=== PATIENT | male | born 1995 | race Caucasian/White ===

== ENCOUNTER 2019-06-24 11:25 | Inpatient (IN) | payer MEDICAID ==
[~2019-06-24] VITALS: Ht 188 cm; Wt 80.9 kg
[2019-06-24] VITALS (14 sets, daily range): BP systolic 127–158; BP diastolic 68–85
[~2019-06-24 11:25] MED LIST: CYCL-1 PO; IBUP-1984 PO; META800T87 PO; TRAZ-91 PO; WEL75T PO
[2019-06-24 12:39] LABS: CLARITY,URINE CLEAR (Clear); COLOR,URINE YELLOW (Yellow); GLUCOSE, URINE NEGATIVE (Neg); KETONES,URINE TRACE mg/dl (Neg); LEUKOCYTE ESTERASE ,URINE NEGATIVE (Neg); NITRITES, URINE NEGATIVE (Neg); OCCULT BLOOD,URINE TRACE-LYSED (Neg); PH,URINE 6.5 (4.8-8.0); PROTEIN,URINE NEGATIVE (Neg)
[2019-06-24 12:40] LABS: UA COLLECTION TYPE CLN CATCH MIDSTREAM
[2019-06-24 12:44] LABS: BASOPHILS # (AUTO) 0.1 X10'3 (0-0.2); BASOPHILS % (AUTO) 0.4 % (0-1); EOSINOPHILS % (AUTO) 0.2 % (0-6); HEMATOCRIT 37.1 % (42.0-52.0); HEMOGLOBIN 12.6 g/dl (14.0-17.9); LYMPHOCYTES # (AUTO) 1.4 X10'3 (1.1-4.8); LYMPHOCYTES % (AUTO) 9.5 % (21-51); MEAN CORPUSCULAR HEMOGLOBIN 30.7 PG (27.0-31.0); MEAN CORPUSCULAR VOLUME 90.3 FL (78-98); MEAN PLATELET VOLUME 10.5 FL (7.4-10.4); MONOCYTES # (AUTO) 1.7 X10'3 (0-0.9); MONOCYTES % (AUTO) 11.5 % (2-12); NEUTROPHILS # (AUTO) 11.7 X10'3 (1.8-7.7); NEUTROPHILS % (AUTO) 78.4 % (42-75); PLATELET COUNT 255 X10'3 (140-440); RED BLOOD COUNT 4.12 X10'6 (4.70-6.10); RED CELL DISTRIBUTION WIDTH 13.2 % (11.5-14.5); WHITE BLOOD COUNT 14.9 X10'3 (4.5-11.0)
[2019-06-24 12:54] LABS: ALANINE AMINOTRANSFERASE 68 U/L (12-78); ALBUMIN 3.6 G/DL (3.4-5.0); ALBUMIN/GLOBULIN RATIO 0.8 (1.1-1.5); ALKALINE PHOSPHATASE 126 IU/L (46-116); ANION GAP 8 (8-16); ASPARTATE AMINO TRANSFERASE 34 U/L (10-37); BILIRUBIN,TOTAL 0.7 MG/DL (0.1-1.0); BLOOD UREA NITROGEN 8 MG/DL (7-18); BUN/CREATININE RATIO 8.2 (5.4-32.0); CALCIUM 9.8 MG/DL (8.5-10.1); CHLORIDE 96 MMOL/L (99-107); CREATININE 0.98 MG/DL (0.60-1.10); GLUCOSE 107 MG/DL (70-104); LIPASE 60 U/L (73-393); POTASSIUM 3.8 MMOL/L (3.5-5.1); SODIUM 136 MMOL/L (135-145); TOTAL CARBON DIOXIDE 31.7 MMOL/L (24-32); TOTAL PROTEIN 8.4 G/DL (6.4-8.2); eGFR > 90 ML/MIN
[2019-06-24 12:57] LABS: BACTERIA,URINE FEW /HPF (Neg); RBC,URINE 0-2 /HPF (0-2); WBC,URINE 0-4 /HPF (0-4)
[2019-06-24 12:58] LABS: SQUAMOUS EPITHELIAL CELL,UR NONE SEEN /LPF (FEW)
[2019-06-24] MEDS ORDERED: piperacillin/tazo 3.375gm/50ml 50 ML IV ONE (13:00)
[2019-06-24 13:02] LABS: LARGE PLATELETS FEW; PLATELET ESTIMATE NORMAL
[2019-06-24] MEDS ORDERED: mag hydrox/Alum hydrox/simeth 30ml oral suspension PO PRN (13:25)
[2019-06-24] MEDS ORDERED: ondansetron/PF 4mg/2ml inj IV PRN ×2 (13:25→18:10)
[2019-06-24] MEDS ORDERED: acetaminophen 325mg tablet PO PRN (13:25)
[2019-06-24] MEDS ORDERED: morphine 2 MG/ML inj. syringe IV PRN (13:25)
[2019-06-24] MEDS ORDERED: magnesium hydroxide 30ml (MOM) UD suspension PO PRN (13:25)
[2019-06-24] MEDS: normal saline 1000ml 1,000 ML IV SCH (13:29)
[2019-06-24] MEDS ORDERED: METH-603 PO (13:39)
--- NOTE | 2019-06-24 17:15 | NUR ---
patient to OR. Pharmacy stated 1600 dose of zosyn can be made and sent to OR. director pharmacovigilance aware.
[2019-06-24] MEDS: piperacillin/tazo 4.5gm/100ml 100 ML IV SCH ×2 (17:22→23:20)
[2019-06-24] MEDS ORDERED: clindamycin phosphate 150mg/ml inj. ONE (17:46)
[2019-06-24] MEDS ORDERED: gentamicin 40 MG/1 ML inj ONE (17:46)
[2019-06-24] MEDS ORDERED: ringers solution, lacted 1,000 ML IV SCH (18:06)
[2019-06-24] MEDS ORDERED: sevoflurane 250ml liquid IH ONE (18:09)
[2019-06-24] MEDS ORDERED: morphine 4 MG/ML inj SYRINge IV PRN ×2 (18:10)
[2019-06-24] MEDS ORDERED: meperidine/PF 25mg/ml syringe IV PRN ×2 (18:10)
[2019-06-24] MEDS ORDERED: proCHLORperazine 10 MG/2 ml inj IV PRN (18:10)
[2019-06-24] MEDS ORDERED: midazolam 2 mg/2 ml injection ONE (18:15)
[2019-06-24] MEDS ORDERED: fentaNYL /PF 50mcg/ml 5ml ampule ONE (18:17)
[2019-06-24] MEDS ORDERED: rocuronium 10mg/ml inj IV ONE (18:19)
[2019-06-24] MEDS ORDERED: propofol inj 20 ML IV ONE (18:19)
--- NOTE | 2019-06-24 18:20 | NUR ---
Received report from JENIFER Leija. Patient still in OR. Awaiting arrival to the floor.
--- NOTE | 2019-06-24 18:29 | NUR ---
Problems reprioritized. Patient report given, questions answered & plan of care reviewed with JENIFER Watkins.
[2019-06-24] MEDS ORDERED: ceFOXitin 2 GM ADDVANTGE BAG 50 ML IV ONE (18:32)
[2019-06-24] MEDS ORDERED: acetaminophen 1,000mg/100ml IV 100 ML IV ONE ×2 (19:20→19:32)
[2019-06-24] MEDS ORDERED: fentaNYL/PF 50MCG/1 ML 2ML syringe ONE (19:24)
[2019-06-24] MEDS ORDERED: BUPIVAcaine/PF 2.5mg/ml (0.25%) 10ml vial ONE (19:27)
[2019-06-24] MEDS ORDERED: BUPIVACAINE liposomal/PF 13.3 MG/ML vial IM ONE (19:27)
[2019-06-24] MEDS ORDERED: BUPIVAcaine/PF 2.5 mg/ml (0.25%) 30ml vial ONE (19:27)
[2019-06-24] MEDS ORDERED: HYDROcodone/acetaminophen 10/325mg tab PO PRN (19:45)
[2019-06-24] MEDS ORDERED: sugammadex 200mg/2ml injection IV ONE (19:46)
--- NOTE | 2019-06-24 19:57 | NUR ---
ARRIVED IN PACU VIA BED WITH DR BRITT IN ATTENDANCE. PT VS STABLE. NO PAIN, BUT DEMEROL GIVEN FOR SHIVERING
--- NOTE | 2019-06-24 20:15 | NUR ---
FENTANYL GIVEN BY ANESTHESIA
--- NOTE | 2019-06-24 20:27 | NUR ---
C/O INCREASING PAIN, MEDICATED. DRAIN EMPTIED FOR 20ML THIN PINK DRAINAGE
[2019-06-24] MEDS: meperidine/PF 25mg/ml syringe IV PRN ×2 (20:29→20:39)
--- NOTE | 2019-06-24 20:47 | NUR ---
PT TO 3 SURG. FAMILY AT BEDSIDE. REPORT TO RN, QUESTIONS ANSWERED
[2019-06-24] MEDS: morphine 2 MG/ML inj. syringe IV PRN (23:19)
[2019-06-25] VITALS: BP 134/79
[2019-06-25] MEDS: normal saline 1000ml 1,000 ML IV SCH ×4 (00:55→23:14)
[2019-06-25 01:00] VITALS: BP 128/70
[2019-06-25] MEDS: morphine 2 MG/ML inj. syringe IV PRN (03:21)
[2019-06-25 03:51] LABS: BASOPHILS % (AUTO) 0.1 % (0-1); EOSINOPHILS % (AUTO) 0 % (0-6); HEMATOCRIT 33.1 % (42.0-52.0); HEMOGLOBIN 11.2 g/dl (14.0-17.9); LYMPHOCYTES # (AUTO) 0.7 X10'3 (1.1-4.8); LYMPHOCYTES % (AUTO) 4.7 % (21-51); MEAN CORPUSCULAR HEMOGLOBIN 30.8 PG (27.0-31.0); MEAN CORPUSCULAR HGB CONC 33.9 g/dL (33.0-36.5); MEAN PLATELET VOLUME 10.5 FL (7.4-10.4); MONOCYTES % (AUTO) 6.7 % (2-12); NEUTROPHILS % (AUTO) 88.5 % (42-75); PLATELET COUNT 226 X10'3 (140-440); RED BLOOD COUNT 3.64 X10'6 (4.70-6.10); RED CELL DISTRIBUTION WIDTH 13.3 % (11.5-14.5); WHITE BLOOD COUNT 14.7 X10'3 (4.5-11.0)
[2019-06-25 03:53] LABS: ANION GAP 4 (8-16); BLOOD UREA NITROGEN 7 MG/DL (7-18); BUN/CREATININE RATIO 8.3 (5.4-32.0); CALCIUM 9.3 MG/DL (8.5-10.1); CHLORIDE 101 MMOL/L (99-107); CREATININE 0.84 MG/DL (0.60-1.10); GLUCOSE 130 MG/DL (70-104); POTASSIUM 3.6 MMOL/L (3.5-5.1); SODIUM 138 MMOL/L (135-145); TOTAL CARBON DIOXIDE 32.6 MMOL/L (24-32); eGFR > 90 ML/MIN
[2019-06-25 04:00] VITALS: BP 129/65
--- NOTE | 2019-06-25 06:19 | NUR ---
Problems reprioritized. Patient report given, questions answered & plan of care reviewed with JENIFER Leija.
[2019-06-25 07:15] VITALS: BP 130/84
--- NOTE | 2019-06-25 07:40 | NUR ---
PAGER ID: [phone] MESSAGE: Ana Moss LawrenceA : please address med rec. 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 thank you!
[2019-06-25] MEDS: piperacillin/tazo 4.5gm/100ml 100 ML IV SCH ×3 (08:19→23:13)
[2019-06-25] MEDS ORDERED: methadone 10mg tablet PO ONE (09:00)
[2019-06-25 11:44] VITALS: BP 133/87
[2019-06-25] MEDS ORDERED: LORazepam 2 mg/ml vial IV PRN (17:50)
--- NOTE | 2019-06-25 18:26 | NUR ---
Problems reprioritized. Patient report given, questions answered & plan of care reviewed with JENIFER Narvaez.
[2019-06-25] MEDS: ketorolac trometh. 30mg/ml inj. IV PRN (19:28)
--- NOTE | 2019-06-25 19:40 | NUR ---
Patient in room [facility]. I have received report from JENIFER Leija and had the opportunity to ask questions and assume patient care. Addendum: 06/25/19 at 194 by Nuvia Yung RN Amended: Links added.
[2019-06-25 20:00] VITALS: BP 145/78
[2019-06-26 00:06] VITALS: BP 134/75
--- NOTE | 2019-06-26 06:26 | NUR ---
Problems reprioritized. Patient report given, questions answered & plan of care reviewed with JENIFER Becerra. Addendum: 06/26/19 at 0626 by Nuvia Yung RN Amended: Links added.
--- NOTE | 2019-06-26 06:43 | NUR ---
Patient in room [facility]. I have received report from JENIFER Narvaez and had the opportunity to ask questions and assume patient care.
[2019-06-26 07:00] VITALS: BP 124/71
[2019-06-26 08:37] LABS: ALBUMIN 2.6 G/DL (3.4-5.0); ANION GAP 8 (8-16); BLOOD UREA NITROGEN 7 MG/DL (7-18); BUN/CREATININE RATIO 9.6 (5.4-32.0); CALCIUM 9.2 MG/DL (8.5-10.1); CHLORIDE 106 MMOL/L (99-107); CREATININE 0.73 MG/DL (0.60-1.10); GLUCOSE 88 MG/DL (70-104); POTASSIUM 3.2 MMOL/L (3.5-5.1); SODIUM 143 MMOL/L (135-145); TOTAL CARBON DIOXIDE 28.8 MMOL/L (24-32); eGFR > 90 ML/MIN
[2019-06-26 08:46] LABS: BASOPHILS % (AUTO) 0.1 % (0-1); EOSINOPHILS # (AUTO) 0.1 X10'3 (0-0.9); EOSINOPHILS % (AUTO) 0.5 % (0-6); HEMATOCRIT 31.7 % (42.0-52.0); HEMOGLOBIN 10.6 g/dl (14.0-17.9); LYMPHOCYTES # (AUTO) 1.4 X10'3 (1.1-4.8); LYMPHOCYTES % (AUTO) 10.4 % (21-51); MEAN CORPUSCULAR HEMOGLOBIN 30.2 PG (27.0-31.0); MEAN CORPUSCULAR HGB CONC 33.4 g/dL (33.0-36.5); MEAN CORPUSCULAR VOLUME 90.6 FL (78-98); MEAN PLATELET VOLUME 11.1 FL (7.4-10.4); MONOCYTES # (AUTO) 1.1 X10'3 (0-0.9); MONOCYTES % (AUTO) 8.1 % (2-12); NEUTROPHILS % (AUTO) 80.9 % (42-75); PLATELET COUNT 262 X10'3 (140-440); RED CELL DISTRIBUTION WIDTH 13.5 % (11.5-14.5); WHITE BLOOD COUNT 13.6 X10'3 (4.5-11.0)
[2019-06-26] MEDS: piperacillin/tazo 4.5gm/100ml 100 ML IV SCH ×2 (08:51→17:02)
[2019-06-26] MEDS: normal saline 1000ml 1,000 ML IV SCH ×2 (08:51→17:03)
[2019-06-26] MEDS: methadone 10mg tablet PO SCH (08:52)
[2019-06-26 10:17] LABS: LARGE PLATELETS FEW; PLATELET ESTIMATE NORMAL
[2019-06-26 11:00] VITALS: BP 133/87
[2019-06-26] MEDS ORDERED: potassium Cl 20 mEq SR tablet PO PRN ×2 (16:25)
[2019-06-26] MEDS: K and/or MAG REPLACEMENT MC SCH ×2 (16:25→20:00)
[2019-06-26] MEDS ORDERED: potassium CL 10mEq/100ml bag 100 ML IV PRN (16:25)
[2019-06-26 17:19] LABS: MAGNESIUM 1.8 MG/DL (1.5-2.4); POTASSIUM 3.2 MMOL/L (3.5-5.1)
--- NOTE | 2019-06-26 19:01 | NUR ---
Problems reprioritized. Patient report given, questions answered & plan of care reviewed with JENIFER STEWARD.
[2019-06-26 20:00] VITALS: BP 126/81
[2019-06-26] MEDS: ketorolac trometh. 30mg/ml inj. IV PRN (20:57)
--- NOTE | 2019-06-26 23:01 | NUR ---
Patient in room [facility]. I have received report from JENIFER Becerra and had the opportunity to ask questions and assume patient care. Addendum: 06/26/19 at 2302 by Nuvia Yung RN Amended: Links added.
--- NOTE | 2019-06-26 23:04 | NUR ---
dressing changed but pt refused to have packing removed. premedicated pt. for pain prior to dressing change. Addendum: 06/26/19 at 2305 by Nuvia Yung RN Amended: Links added.
[2019-06-27] MEDS: piperacillin/tazo 4.5gm/100ml 100 ML IV SCH ×4 (00:02→23:46)
[2019-06-27] MEDS: normal saline 1000ml 1,000 ML IV SCH ×3 (00:24→19:38)
[2019-06-27 00:47] VITALS: BP 130/82
[2019-06-27 05:57] LABS: BASOPHILS % (AUTO) 0.2 % (0-1); EOSINOPHILS # (AUTO) 0.2 X10'3 (0-0.9); EOSINOPHILS % (AUTO) 1.4 % (0-6); HEMOGLOBIN 9.3 g/dl (14.0-17.9); LYMPHOCYTES # (AUTO) 2.6 X10'3 (1.1-4.8); LYMPHOCYTES % (AUTO) 22.2 % (21-51); MEAN CORPUSCULAR HEMOGLOBIN 30.6 PG (27.0-31.0); MEAN CORPUSCULAR HGB CONC 33.4 g/dL (33.0-36.5); MEAN CORPUSCULAR VOLUME 91.8 FL (78-98); MEAN PLATELET VOLUME 9.9 FL (7.4-10.4); MONOCYTES % (AUTO) 8.7 % (2-12); NEUTROPHILS # (AUTO) 7.8 X10'3 (1.8-7.7); NEUTROPHILS % (AUTO) 67.5 % (42-75); PLATELET COUNT 264 X10'3 (140-440); RED BLOOD COUNT 3.05 X10'6 (4.70-6.10); RED CELL DISTRIBUTION WIDTH 13.8 % (11.5-14.5); WHITE BLOOD COUNT 11.5 X10'3 (4.5-11.0)
--- NOTE | 2019-06-27 06:23 | NUR ---
Problems reprioritized. Patient report given, questions answered & plan of care reviewed with JENIFER Becerra. Addendum: 06/27/19 at 0623 by Nuvia Yung RN Amended: Links added.
[2019-06-27 06:26] LABS: ALBUMIN 2.2 G/DL (3.4-5.0); ANION GAP 9 (8-16); BLOOD UREA NITROGEN 7 MG/DL (7-18); BUN/CREATININE RATIO 9.5 (5.4-32.0); CALCIUM 8.4 MG/DL (8.5-10.1); CHLORIDE 107 MMOL/L (99-107); CREATININE 0.74 MG/DL (0.60-1.10); GLUCOSE 84 MG/DL (70-104); MAGNESIUM 1.8 MG/DL (1.5-2.4); POTASSIUM 3.5 MMOL/L (3.5-5.1); SODIUM 145 MMOL/L (135-145); eGFR > 90 ML/MIN
--- NOTE | 2019-06-27 06:38 | NUR ---
Patient in room [facility]. I have received report from JENIFER Pedersen and had the opportunity to ask questions and assume patient care.
[2019-06-27 07:00] VITALS: BP 125/68
[2019-06-27] MEDS: enoxaparin 40mg/0.4ml syringe SUBCUT SCH (08:00)
[2019-06-27] MEDS: K and/or MAG REPLACEMENT MC SCH ×2 (08:00→19:36)
[2019-06-27] MEDS: methadone 10mg tablet PO SCH (09:52)
[2019-06-27 11:00] VITALS: BP 140/80
--- NOTE | 2019-06-27 19:17 | NUR ---
Patient in room [facility]. I have received report from Mariam BURGESS and had the opportunity to ask questions and assume patient care. Pt lying on his back in bed with girlfriend at bedside. No signs of distress, will continue to monitor.
--- NOTE | 2019-06-27 19:34 | NUR ---
Problems reprioritized. Patient report given, questions answered & plan of care reviewed with JENIFER DUENAS.
[2019-06-27] MEDS: magnesium hydroxide 30ml (MOM) UD suspension PO SCH (19:39)
[2019-06-27 20:00] VITALS: BP 134/80
[2019-06-28 00:26] VITALS: BP 130/75
[2019-06-28] MEDS: normal saline 1000ml 1,000 ML IV SCH (05:22)
--- NOTE | 2019-06-28 06:20 | NUR ---
Problems reprioritized. Patient report given, questions answered & plan of care reviewed with Mariam BURGESS.
--- NOTE | 2019-06-28 06:22 | NUR ---
Patient in room [facility]. I have received report from JENIFER DUENAS and had the opportunity to ask questions and assume patient care.
[2019-06-28 07:00] VITALS: BP 152/84
[2019-06-28] MEDS: enoxaparin 40mg/0.4ml syringe SUBCUT SCH (08:00)
[2019-06-28] MEDS: K and/or MAG REPLACEMENT MC SCH ×2 (08:00→20:00)
[2019-06-28] MEDS: piperacillin/tazo 4.5gm/100ml 100 ML IV SCH ×2 (10:37→16:00)
[2019-06-28 11:00] VITALS: BP 133/77
[2019-06-28] MEDS: magnesium hydroxide 30ml (MOM) UD suspension PO SCH ×2 (11:25→19:57)
[2019-06-28] MEDS: methadone 10mg tablet PO SCH (11:25)
[2019-06-28] MEDS ORDERED: CEFD300C3 PO (14:45)
--- NOTE | 2019-06-28 16:00 | NUR ---
NONADMIN OF 1600 ZOSYN: MED WAS GIVEN LATE, MED WAS TURNED OUT FOR SOMETIME WHEN RESTARTED END OF INFUSION WAS TOO CLOSE TO TIME TO GIVE NEXT DOSE
[2019-06-28 18:00] VITALS: BP 141/87
--- NOTE | 2019-06-28 18:20 | NUR ---
Problems reprioritized. Patient report given, questions answered & plan of care reviewed with JENIFER WATERS.
[2019-06-29] VITALS: BP 135/65
[2019-06-29] MEDS: piperacillin/tazo 4.5gm/100ml 100 ML IV SCH ×2 (00:21→07:15)
--- NOTE | 2019-06-29 06:42 | NUR ---
Patient in room [facility]. I have received report from [place] BURGESS and had the opportunity to ask questions and assume patient care.
[2019-06-29] MEDS: methadone 10mg tablet PO SCH (07:11)
[2019-06-29] MEDS: magnesium hydroxide 30ml (MOM) UD suspension PO SCH (07:14)
[2019-06-29] MEDS: enoxaparin 40mg/0.4ml syringe SUBCUT SCH (07:14)
[2019-06-29 07:28] VITALS: BP 150/94
--- NOTE | 2019-06-29 09:12 | NUR ---
Patient D/C'd per Dr Dash. Pt left the hospital around 0845 waiting for ride. pt alert and oriented, stable condition. Dressing changed and IV removed. Discharge and medication instruction given to patient. Escorted to the lobby. Left the hospital accompanied by friend via private vehicle.
== END 2019-06-29 08:59 | disposition home or self-care (01) | DRG 231 ==
LOC: ER 11:26 → ED HOLD 13:24 → SUR 3N 15:30
PROVIDERS: ADMIT Family Medicine; ATTEND Family Medicine
PROC: 0DBH0ZZ Excision of Cecum, Open Approach (ICD-10-PCS; 2019-06-24)
PROC: 0DTJ0ZZ Resection of Appendix, Open Approach (ICD-10-PCS; principal; 2019-06-24 18:09)
DX: K35.33 Acute appendicitis with perforation, localized peritonitis, and gangrene, with abscess (principal); B96.89 Other specified bacterial agents as the cause of diseases classified elsewhere; G89.29 Other chronic pain; D72.829 Elevated white blood cell count, unspecified; F12.90 Cannabis use, unspecified, uncomplicated; F32.9 Major depressive disorder, single episode, unspecified; E87.6 Hypokalemia; D64.9 Anemia, unspecified; Z88.1 Allergy status to other antibiotic agents; Z91.040 Latex allergy status
CPT/HCPCS: 36415; 74176; 80048; 80053; 81001; 83690; 83735; 84132; 85025; 87070; 87075; 87076; 87077; 87081; 87185; 87186; 96374; 99285; A4618; A6402; A6407; A7000; C1758; C9290; C9399; G0378; J0131; J0694; J1580; J1650; J1885; J2060; J2175; J2250; J2270; J2405; J2543; J2704; J3010; J3490; J7030; J7120

== ENCOUNTER 2020-10-29 20:03 | Emergency (ER) | payer MEDICAID ==
[~2020-10-29] VITALS: Ht 185.4 cm; Wt 81.8 kg
[~2020-10-29 20:03] MED LIST changes: -CYCL-1 PO; -IBUP-1984 PO; -META800T87 PO; +METH-603 PO; -TRAZ-91 PO; -WEL75T PO
[2020-10-29 20:24] VITALS: BP 135/99
[2020-10-29] MEDS ORDERED: CefTRIAXone 1000mg IM Kit (w/lidocaine diluent) IM STA (22:59)
[2020-10-29] MEDS ORDERED: ibuprofen tablet 400 MG TABLET PO ONE (23:00)
[2020-10-29] MEDS ORDERED: azithromycin 250mg tablet PO ONE (23:00)
[2020-10-29 23:58] LABS: BASOPHILS # (AUTO) 0.1 X10'3 (0-0.2); BASOPHILS % (AUTO) 0.7 % (0-1); EOSINOPHILS # (AUTO) 0.2 X10'3 (0-0.9); EOSINOPHILS % (AUTO) 1.9 % (0-6); HEMATOCRIT 45.3 % (42.0-52.0); HEMOGLOBIN 15.2 g/dl (14.0-17.9); LYMPHOCYTES # (AUTO) 3.5 X10'3 (1.1-4.8); LYMPHOCYTES % (AUTO) 37.6 % (21-51); MEAN CORPUSCULAR HEMOGLOBIN 30.8 PG (27.0-31.0); MEAN CORPUSCULAR HGB CONC 33.7 g/dL (33.0-36.5); MEAN CORPUSCULAR VOLUME 91.5 FL (78-98); MEAN PLATELET VOLUME 11.3 FL (7.4-10.4); MONOCYTES # (AUTO) 0.8 X10'3 (0-0.9); MONOCYTES % (AUTO) 8.4 % (2-12); NEUTROPHILS # (AUTO) 4.7 X10'3 (1.8-7.7); NEUTROPHILS % (AUTO) 51.4 % (42-75); PLATELET COUNT 208 X10'3 (140-440); RED BLOOD COUNT 4.94 X10'6 (4.70-6.10); RED CELL DISTRIBUTION WIDTH 13.4 % (11.5-14.5); WHITE BLOOD COUNT 9.2 X10'3 (4.5-11.0)
[2020-10-30 00:08] LABS: ALANINE AMINOTRANSFERASE 20 U/L (12-78); ALBUMIN/GLOBULIN RATIO 1.5 (1.1-1.5); ALKALINE PHOSPHATASE 89 IU/L (46-116); ANION GAP 12 (8-16); ASPARTATE AMINO TRANSFERASE 15 U/L (10-37); BILIRUBIN,TOTAL 0.8 MG/DL (0.1-1.0); BLOOD UREA NITROGEN 16 MG/DL (7-18); BUN/CREATININE RATIO 13.2 (5.4-32.0); CALCIUM 9.6 MG/DL (8.5-10.1); CHLORIDE 102 MMOL/L (99-107); CREATININE 1.21 MG/DL (0.60-1.10); GLUCOSE 95 MG/DL (70-104); POTASSIUM 3.9 MMOL/L (3.5-5.1); SODIUM 143 MMOL/L (135-145); TOTAL CARBON DIOXIDE 28.8 MMOL/L (24-32); TOTAL PROTEIN 8.3 G/DL (6.4-8.2); eGFR 74 ML/MIN
--- NOTE | 2020-10-30 01:03 | NUR ---
PT JUST PROVIDED A URINE SAMPLE. PTS GRANDMOTHER JUST ARRIVED AND IS AT BEDSIDE.
[2020-10-30 01:22] LABS: CLARITY,URINE CLEAR (Clear); COLOR,URINE YELLOW (Yellow); GLUCOSE, URINE NEGATIVE (Neg); KETONES,URINE 40 mg/dl (Neg); LEUKOCYTE ESTERASE ,URINE NEGATIVE (Neg); NITRITES, URINE NEGATIVE (Neg); OCCULT BLOOD,URINE NEGATIVE (Neg); PH,URINE 5.5 (4.8-8.0); PROTEIN,URINE NEGATIVE (Neg)
[2020-10-30 01:35] LABS: UA COLLECTION TYPE NON-SPECIFIED
[2020-10-30] MEDS ORDERED: DOXY100C43 PO (01:42)
--- NOTE | 2020-10-30 01:51 | NUR ---
GUDELIA HUSAIN TALKING WITH PT AND HIS GRANDMOTHER.
== END 2020-10-30 01:56 | disposition home or self-care (01) ==
LOC: ER 20:04
DX: N50.812 Left testicular pain (principal); R10.32 Left lower quadrant pain; F32.9 Major depressive disorder, single episode, unspecified; F12.90 Cannabis use, unspecified, uncomplicated; Z88.0 Allergy status to penicillin; Z91.040 Latex allergy status; Z79.2 Long term (current) use of antibiotics; Z79.899 Other long term (current) drug therapy
CPT/HCPCS: 36415; 74176; 76870; 80053; 81003; 84484; 85025; 87491; 87591; 93976; 96372; 99285; J0696

== ENCOUNTER 2024-04-30 16:19 | Emergency (ER) | payer MEDICAID ==
[~2024-04-30] VITALS: Ht 185.4 cm; Wt 108.3 kg
[2024-04-30 16:35] VITALS: BP 159/88; PULSE 105; RESP 16; TEMP 98.2; O2SAT 98
== END 2024-04-30 18:01 | disposition home or self-care (01) ==
LOC: ER 16:19
DX: R07.89 Other chest pain (principal); F32.A Depression, unspecified; F12.90 Cannabis use, unspecified, uncomplicated; Z88.2 Allergy status to sulfonamides; Z79.899 Other long term (current) drug therapy
CPT/HCPCS: 93005; 99283